=== PATIENT | male | born 1995 | race Caucasian/White ===

== ENCOUNTER 2022-01-29 20:45 | Emergency (ER) | payer MEDICAID ==
[~2022-01-29] VITALS: Ht 154.9 cm; Wt 81.6 kg
--- NOTE | 2022-01-29 21:56 | NUR ---
TO ER BED 15. BIBRA 61 FROM [facility] FOR DRINKING ALCOHOL AT THE FACILITY. DENIES ANY CHEST PAIN. NOT IN RESPIRATORY DISTRESS. CONNECTED TO MONITOR.
--- NOTE | 2022-01-29 22:32 | NUR ---
URINE COLLECTED AND SENT TO LAB
[2022-01-30] MEDS ORDERED: ONDANSETRON 4 MG TAB.RAPDIS ONE ×2 (02:35→03:39)
--- NOTE | 2022-01-30 03:05 | NUR ---
report given to Lindsay at the facility
--- NOTE | 2022-01-30 03:08 | NUR ---
[facility] ETA:30MIN
--- NOTE | 2022-01-30 03:42 | NUR ---
REPORT GIVEN TO [facility] FOR PT TO DC TO FACILITY. INSTRUCTIONS GIVEN. PT VERBALIZED UNDERSTANDING.
[2022-01-30 03:43] VITALS: BP 121/73
[2022-01-30] MEDS ORDERED: ONDANSETRON 4 MG TAB.RAPDIS SL ONE (04:00)
== END 2022-01-30 04:37 | disposition home or self-care (01) ==
LOC: ER 20:52
DX: F10.929 Alcohol use, unspecified with intoxication, unspecified (principal); Y90.9 Presence of alcohol in blood, level not specified; Z86.69 Personal history of other diseases of the nervous system and sense organs
CPT/HCPCS: 80307; 99283; Q0162 ×2